=== PATIENT | female | born 1940 | race African-American/Black ===

== ENCOUNTER 2017-04-07 05:20 | Day surgery (SDC) | payer MEDICARE ==
[2017-04-05 10:41] LABS: HEMATOCRIT 38.8 % (36.0-48.0); HEMOGLOBIN 12.7 g/dL (12.0-16.0)
[2017-04-05 10:57] LABS: ALBUMIN 3.8 G/DL (3.5-5.0); ALKALINE PHOSPHATASE 150 U/L (45-117); BUN (BLOOD UREA NITROGEN) 15 MG/DL (6-23); CHLORIDE, SERUM 107 MMOL/L (96-112); CO2 (CARBON DIOXIDE) 29 MMOL/L (24-34); CREATININE 0.99 MG/DL (0.55-1.02); GFR AFRICAN AMERICAN 64 ML/MIN (>=60); GFR NON AFRICAN AMERICAN 55 ML/MIN (>=60); GLOBULIN 3.8 G/DL (2.5-4.1); GLUCOSE, SERUM 98 MG/DL (60-99); POTASSIUM, SERUM 5.2 MMOL/L (3.5-5.3); SGPT(ALT) 26 U/L (5-65); SODIUM, SERUM 141 MMOL/L (135-148); TOTAL BILIRUBIN 0.3 MG/DL (0-1.2); TOTAL PROTEIN 7.6 G/DL (6.0-8.5)
[2017-04-05 10:58] LABS: SGOT(AST) 31 U/L (5-40)
--- NOTE | ~2017-04-07 | OP ---
Record Of Operation [facility] [address] [place]. [address] NAME: MIMI FORD : 38 [place] : [facility] [place] [id number] AGE: 76 ADM/REG DATE : 04/07/17 MR#: [id number] REPORT SERV DATE: 04/07/17 DICTATED BY: ERIBERTO MYRICK DATE: 04/07/17 REPORT STATUS : Draft TRANSCRIBED BY: MODL DATE: 04/07/17 DATE OF PROCEDURE: 04/07/2017 PREOPERATIVE DIAGNOSIS: Hyperparathyroidism. POSTOPERATIVE DIAGNOSIS: Hyperparathyroidism. PROCEDURE: Parathyroidectomy with four gland exploration. SURGEON: Eriberto Myrick M.D. CHIEF RESIDENT: Quentin Johnson MD ANESTHETIC: General. IV FLUIDS: 400 mL. ESTIMATED BLOOD LOSS: 20 mL. COMPLICATIONS: None. COUNTS: Correct. SPECIMENS: 1. Left superior parathyroid. 2. Left inferior parathyroid. 3. Partial right superior parathyroid. BRIEF HISTORY: The patient is a 77-year-old female, with hypercalcemia, elevated PTH in the low 100s, with musculoskeletal symptoms, who has been on long-term vitamin D. She has not had a DEXA scan. She was evaluated in the office and ultrasound at that time, demonstrated a hypoechoic left superior nodule consistent with an enlarged parathyroid. The risks, alternatives, and benefits of the procedure were discussed and she agreed to proceed with the surgery. DETAILS OF PROCEDURE: The patient brought to the operating room and placed supine on the operating table. Endotracheal intubation was achieved via onset of anesthetic. The patient was positioned in a semi-Reese's position. The neck was prepped and draped in a standard sterile fashion. A time-out was held. 4 cm incision in a natural crease in the neck was made through the skin and subcutaneous fat. The platysma was identified and divided with electrocautery. The subplatysmal flaps were developed. Next, the median raphe was divided with electrocautery and the left strap muscles dissected free from the left thyroid. The left thyroid was pale compared to its usual color. This was retracted medially and the dissection carried out laterally. We initially began our dissection, the superior pole were identified, enlarged, interrogated the left superior parathyroid that appeared to be an adenoma. After this was freed, the arterial supply was isolated, clipped, and divided. The Record Of Operation [facility] [address] [place]. [address] NAME: MIMI FORD : 38 [place]US [place] [facility] [place] [id number] AGE: 76 ADM/REG DATE : 04/07/17 MR#: [id number] REPORT SERV DATE: 04/07/17 DICTATED BY: ERIBERTO MYRICK DATE: 04/07/17 REPORT STATUS : Draft TRANSCRIBED BY: CESAR DATE: 04/07/17 specimen was passed off. Next, we turned our attention to the left anterior inferior gland. This was identified just posterior to the inferior thyroid vein which was doubly clipped and divided. This was freed up from the surrounding tissue. This too appeared to be enlarged and targeted with discoloration. This too was isolated, divided, and passed off as specimen. 10 minutes following, the second presumed adenoma, we stone her first intraoperative PTH. Of note, the preoperative PTH was 140. Next, we turned our attention to the right parathyroids of concern that we may be dealing with four gland hyperplasia. Similar to the right we dissected the strap muscles from the anterior of the thyroid with care taken not to enter the thyroid capsule. The thyroid was retracted medially. An inferior gland we searched for first. We did identify the inferior right parathyroid gland on the posterior aspect of the superior portion of the thymus. We left this intact since it appeared slightly large, but relatively soft and normal. Next, we turned our attention to the right superior pole and identified another slightly large soft, but seemingly normal superior parathyroid gland. This was clipped in the lateral portion, excised, and passed off as a specimen. In the mean time, during this dissection, a second intraoperative PTH had been drawn. We ensured adequate hemostasis and waited for the intraoperative PTHs to result. The first intraoperative PTH came down to 51 and the second down to 30. 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 Again, adequate hemostasis was ensured and the median raphe was reapproximated with 3-0 Vicryl in a running fashion. The platysma was reapproximated with 4-0 Vicryl in interrupted fashion. The skin was reapproximated with 4-0 Monocryl in subcuticular fashion. Sterile bandages were applied. The patient was extubated and transferred to the recovery room in stable condition. She will be discharged home with continuation of her home medications include vitamin D and calcium replacement. SR/MODL Eriberto Myrick M.D. / [id number] CC: Naty Quigley M.D.
[~2017-04-07 05:20] MED LIST: ALEVE220 MG PO; ASAB PO; ASPERCREME TOP; CO Q-10100 MG PO; FISH OIL300 MG PO; HUMULIN SC; MOMUD PO; MULTIVIT/MIN PO; PRESERVISION A1 EAC1 PO; PRIN20 PO; SYN075 PO; VITAMIN D31000 UNIT PO
[2017-04-07 07:25] LABS: PTH (INTRAOPERATIVE) 149.1 PG/ML (10.0-65.0); PTH TAT 0 Hrs 21 Mins
[2017-04-07 08:41] LABS: PTH (INTRAOPERATIVE) 51.4 PG/ML (10.0-65.0); PTH TAT 0 Hrs 21 Mins
[2017-04-07 08:53] LABS: PTH (INTRAOPERATIVE) 30.9 PG/ML (10.0-65.0); PTH TAT 0 Hrs 22 Mins
== END 2017-04-07 18:57 | disposition home or self-care (01) ==
LOC: SDC 05:20
PROVIDERS: Specialist
PROC: 0GBL0ZZ Excision of Right Superior Parathyroid Gland, Open Approach (ICD-10-PCS; 2017-04-07)
PROC: 0GBP0ZZ Excision of Left Inferior Parathyroid Gland, Open Approach (ICD-10-PCS; 2017-04-07)
PROC: 0GBM0ZZ Excision of Left Superior Parathyroid Gland, Open Approach (ICD-10-PCS; principal; 2017-04-07 06:45)
DX: E21.3 Hyperparathyroidism, unspecified (principal); E11.9 Type 2 diabetes mellitus without complications; E03.9 Hypothyroidism, unspecified; E66.01 Morbid (severe) obesity due to excess calories; D64.9 Anemia, unspecified; Z68.43 Body mass index [BMI] 50.0-59.9, adult; Z88.1 Allergy status to other antibiotic agents; Z88.0 Allergy status to penicillin; Z88.2 Allergy status to sulfonamides; Z88.5 Allergy status to narcotic agent; Z88.3 Allergy status to other anti-infective agents; Z88.8 Allergy status to other drugs, medicaments and biological substances; Z90.710 Acquired absence of both cervix and uterus; Z98.890 Other specified postprocedural states
CPT/HCPCS: 80053; 82962; 83970; 85014; 85018; 88305; 93005; J2270; J2405; J2710; J3010